=== PATIENT | male | born 1980 | race Caucasian/White ===

== ENCOUNTER 2023-02-20 01:16 | Emergency (ER) | payer OTHER ==
[2023-02-20] MEDS ORDERED: traMADol 50 MG Tab PO ONE (02:24)
[2023-02-20] MEDS ORDERED: Cefuroxime 250 MG Tab PO STA (02:24)
[2023-02-20] MEDS ORDERED: Cefuroxime 250 MG Tab ONE (02:29)
== END 2023-02-20 03:00 | disposition home or self-care (01) ==
LOC: FB.ED 01:16
DX: J01.90 Acute sinusitis, unspecified (principal); I10 Essential (primary) hypertension; Z86.16 Personal history of COVID-19; Z79.899 Other long term (current) drug therapy; Z88.0 Allergy status to penicillin; Z88.1 Allergy status to other antibiotic agents
CPT/HCPCS: 99283; A9270-GY